=== PATIENT | male | born 1945 | race Caucasian/White ===

== ENCOUNTER → 2018-06-23 | Outpatient (CLI) | payer MEDICARE | END | disposition home or self-care (01) | LOC: ROC 07:18 | PROVIDERS: ATTEND Radiology Radiation Oncology | DX: D32.0 Benign neoplasm of cerebral meninges (principal) | CPT/HCPCS: G0463 ==

== ENCOUNTER 2019-12-22 07:58 | Outpatient (CLI) | payer MEDICARE | END 2019-12-22 23:59 | disposition home or self-care (01) | LOC: ROC 07:58 | PROVIDERS: ATTEND Radiology Radiation Oncology | DX: D32.0 Benign neoplasm of cerebral meninges (principal) | CPT/HCPCS: G0463 ==